=== PATIENT | female | born 1990 | race African-American/Black ===

== ENCOUNTER 2017-08-21 16:54 | Inpatient (IN) | payer OTHER ==
[2017-08-22] MEDS ORDERED: DEXTROSE 5%-LACTATED RINGERS 1,000 ML IV SCH ×3 (05:00→19:45)
[2017-08-22 05:58] LABS: BASO % 0.1 % (0-2.0); EOS % 0.1 % (0-4.5); HEMATOCRIT 32.8 % (32.4-45.2); HEMOGLOBIN 10.4 GM/dL (10.7-15.3); LYMPH % 14.3 % (8-40); MCH 24.7 pg (25.7-33.7); MCHC 31.6 g/dl (32.0-36.0); MEAN CELL VOLUME 78.1 fl (80-96); MONO % 4.4 % (3.8-10.2); NEUT % 81.1 % (42.8-82.8); PLATELET COUNT 307 K/MM3 (134-434); RDW 17.7 % (11.6-15.6); WHITE BLOOD COUNT 14.3 K/mm3 (4.0-10.0)
[2017-08-22 06:23] VITALS: BMI 34.9
[2017-08-22 06:31] LABS: ANION GAP 9 (8-16); BLOOD UREA NITROGEN 6 mg/dL (7-18); CALCIUM 8.7 mg/dL (8.5-10.1); CHLORIDE 106 mmol/L (98-107); CO2 22 mmol/L (21-32); CREATININE 0.6 mg/dL (0.55-1.02); GLUCOSE,RANDOM 81 mg/dL (74-106); POTASSIUM 4.1 mmol/L (3.5-5.1); SODIUM 137 mmol/L (136-145)
[2017-08-22 06:41] LABS: INR 1.01 (0.82-1.09); PROTHROMBIN TIME (PATIENT) 11.4 SEC (9.98-11.88)
[2017-08-22 06:43] LABS: ACTIVATED PTT 27.3 SECONDS (26.9-34.4)
[2017-08-22] MEDS ORDERED: BUTORPHANOL TARTRATE 1 MG/ML VIAL IVPB ONE (08:16)
[2017-08-22] MEDS ORDERED: PROMETHAZINE HCL 25 MG/1 ML VIAL IVPUSH ONE (08:16)
--- NOTE | 2017-08-22 08:22 | HP ---
Past Medical History - Admission Chief Complaint: Labor pain History of Present Illness: 26 yo , @ 40 weeks gestation, admitted for labor pain. She denies any vaginal bleeding, but admits to leakage of fluid. Upon admission she was 3 cm dilated History Source: Patient Limitations to Obtaining History: No Limitations - Past Medical History ...: 2 ...Para: 0 ...Term: 0 ...: 0 ...Spon : 0 ...Induced : 1 ...Multiple Gestation: 0 ... Weeks Gestation by Dates: 40.2 ...EDC by Sono: 08/19/17 - Past Surgical History Past Surgical History: Yes: None Hx Myomectomy: No Hx Transabdominal Cerclage: No - Smoking History Smoking history: Never smoked Have you smoked in the past 12 months: No - Alcohol/Substance Use Hx Alcohol Use: No - Social History Usual Living Arrangement: Yes: With Parent History of Recent Travel: No Home Medications - Allergies Allergies/Adverse Reactions: Allergies Allergy/AdvReac Type Severity Reaction Status Date / Time No Known Allergies Allergy Verified 08/21/17 17:39 - Home Medications Home Medications: Ambulatory Orders Vit 108/Iron/Folic AC [ One Tablet] 1 tab PO DAILY 08/21/17 Family Disease History - Family Disease History Family History: Unremarkable Review of Systems - Review of Systems Constitutional: reports: No Symptoms Eyes: reports: No Symptoms HENT: reports: No Symptoms Neck: reports: No Symptoms Cardiovascular: reports: No Symptoms Respiratory: reports: No Symptoms Gastrointestinal: reports: No Symptoms Genitourinary: reports: Pain Breasts: reports: No Symptoms Reported Musculoskeletal: reports: No Symptoms Integumentary: reports: No Symptoms Neurological: reports: No Symptoms Endocrine: reports: No Symptoms Hematology/Lymphatic: reports: No Symptoms Pain Intensity: 7 Physical Exam - Maternity Vital Signs: Vital Signs Temperature 98.1 F 08/22/17 07:00 Pulse Rate 103 H 08/22/17 07:00 Respiratory Rate 18 08/22/17 07:00 Blood Pressure 107/68 08/22/17 07:00 O2 Sat by Pulse Oximetry (%) Constitutional: Yes: Well Nourished Eyes: Yes: Conjunctiva Clear HENT: Yes: Atraumatic Neck: Yes: Supple Cardiovascular: Yes: Regular Rate and Rhythm Lungs: Clear to auscultation - Abdominal Exam/OB Number of Fetuses: Single Presentation: Vertex Intensity: Moderate - Vaginal Exam/OB Dilatation (cm): 3 Effacement (%): 90 Amniotic Membrane Status: Leaking Presentation: Vertex/Position Station: -2 - Physical Exam Musculoskeletal: Yes: WNL ...Motor Strength: WNL Psychiatric: Yes: Alert, Oriented - Labs Lab Results: CBC, BMP 08/22/17 05:30 08/22/17 05:30 Problem List - Problems (1) Pain during labor Code(s): O99.89 - OTH DISEASES AND CONDITIONS COMPL PREG/CHLDBRTH; R52 - PAIN, UNSPECIFIED Assessment/Plan Labor pain Admit to L&D Pitocin augmentation Analgesia as needed Anticipate
[2017-08-22] MEDS ORDERED: OXYTOCIN 15 UNITS/ LR 250 ML 15 UNIT/250 ML INFUS.BAG IVPB SCH ×2 (08:30→19:45)
[2017-08-22] MEDS ORDERED: TUBERCULIN PPD 5 TU/0.1ML SYRINGE (IN PATIENT USE ONLY) ID ONE (09:45)
[2017-08-22] MEDS ORDERED: ELECTROLYTE-148 SOLN 500 ML IV SCH (17:00)
[2017-08-22] MEDS ORDERED: CITRIC ACID/SODIUM CITRATE 30 ML UNIT-DOSE CUP PO ONE (17:00)
[2017-08-22] MEDS ORDERED: ELECTROLYTE-148 SOLN 1,000 ML IV SCH ×2 (17:30→19:45)
[2017-08-22] MEDS ORDERED: IBUPROFEN 600 MG TABLET (FP) PO PRN ×2 (18:14→18:56)
[2017-08-22] MEDS ORDERED: ONDANSETRON 4 MG/2 ML VIAL IVPUSH PRN ×2 (18:14→19:44)
[2017-08-22] MEDS ORDERED: ACETAMINOPHEN 325 MG TABLET (FP) PO PRN (18:14)
[2017-08-22] MEDS ORDERED: oxyCODONE HCL 5 MG TABLET PO PRN (18:56)
[2017-08-22] MEDS ORDERED: METHYLERGONOVINE MALEATE 0.2 MG/1 ML AMP IM PRN ×2 (18:56→19:44)
[2017-08-22] MEDS ORDERED: SIMETHICONE 80 MG TAB.CHEW (FP) PO PRN (18:56)
[2017-08-22] MEDS ORDERED: OXYTOCIN 20 UNITS in 0.9% NS 20 UNIT/1,000 ML INFUS.BAG IV SCH ×2 (19:00→19:03)
--- NOTE | 2017-08-22 19:00 | OP ---
Operative Note - Note: Operative Date: 08/22/17 Pre-Operative Diagnosis: Arrest of descent Operation: Primary Low Transverse Findings: Baby boy in ROT position Post-Operative Diagnosis: Same as Pre-op Surgeon: Saranya Navarro Anglesmith Helper: Jer Bridges Anesthesia: Spinal Specimens Removed: Placenta Estimated Blood Loss (mls): 600 Operative Report Dictated: Yes
[2017-08-22] MEDS ORDERED: FERROUS SO4 325 MG TABLET (FP) PO SCH (19:15)
[2017-08-22] MEDS ORDERED: BISACODYL 10 MG SUPP.RECT RC PRN (19:42)
[2017-08-22] MEDS ORDERED: IBUPROFEN 800 MG/8 ML IJ IVPB ONE ×2 (19:59→20:30)
[2017-08-23] MEDS ORDERED: IBUPROFEN 800 MG/8 ML IJ IVPB PRN (04:22)
[2017-08-23] MEDS: OXYTOCIN 20 UNITS in 0.9% NS 20 UNIT/1,000 ML INFUS.BAG IV SCH ×2 (07:12→09:00)
--- NOTE | 2017-08-23 08:06 | PN ---
Post Progress Note Post Day: 1 Type of Delivery: Primary C/S Vital Signs: Vital Signs Temperature 98.1 F 08/23/17 06:00 Pulse Rate 100 H 08/23/17 06:00 Respiratory Rate 18 08/23/17 06:00 Blood Pressure 112/62 08/23/17 06:00 O2 Sat by Pulse Oximetry (%) 100 08/22/17 20:00 Breast Exam: Yes: Soft Uterus: Yes: Fundus Firm Incision: Yes: Dressing dry and intact Abdomen/GI: Yes: Abdomen soft, Tender Lochia: Yes: Rubra Lochia, amount: Moderate Extremities: Yes: Calves non-tender Perineum: Yes: Intact - Labs Labs: CBC WBC 14.3 K/mm3 (4.0-10.0) H 08/22/17 05:30 RBC 4.20 M/mm3 (3.60-5.2) 08/22/17 05:30 Hgb 10.4 GM/dL (10.7-15.3) L 08/22/17 05:30 Hct 32.8 % (32.4-45.2) 08/22/17 05:30 MCV 78.1 fl (80-96) L 08/22/17 05:30 MCH 24.7 pg (25.7-33.7) L 08/22/17 05:30 MCHC 31.6 g/dl (32.0-36.0) L 08/22/17 05:30 RDW 17.7 % (11.6-15.6) H 08/22/17 05:30 Plt Count 307 K/MM3 (134-434) 08/22/17 05:30 MPV 8.0 fl (7.5-11.1) 08/22/17 05:30 Neutrophils % 81.1 % (42.8-82.8) 08/22/17 05:30 Lymphocytes % 14.3 % (8-40) 08/22/17 05:30 Monocytes % 4.4 % (3.8-10.2) 08/22/17 05:30 Eosinophils % 0.1 % (0-4.5) 08/22/17 05:30 Basophils % 0.1 % (0-2.0) 08/22/17 05:30 Assessment/Plan s/p section day#1 condition is stable h/h are pending continue clear liquid diet encourage ambulation
[2017-08-23] MEDS: FERROUS SO4 325 MG TABLET (FP) PO SCH ×2 (08:53→17:28)
[2017-08-23 08:57] LABS: BASO % 0.3 % (0-2.0); HEMATOCRIT 26.9 % (32.4-45.2); HEMOGLOBIN 8.4 GM/dL (10.7-15.3); LYMPH % 13.6 % (8-40); MCH 24.5 pg (25.7-33.7); MCHC 31.1 g/dl (32.0-36.0); MEAN CELL VOLUME 78.7 fl (80-96); MEAN PLT VOLUME 7.8 fl (7.5-11.1); NEUT % 80.1 % (42.8-82.8); PLATELET COUNT 223 K/MM3 (134-434); RBC 3.42 M/mm3 (3.60-5.2); RDW 17.7 % (11.6-15.6); WHITE BLOOD COUNT 15.2 K/mm3 (4.0-10.0)
[2017-08-23] MEDS ORDERED: PRENATAL VITAMINS W/ FOLIC ACID TABLET (FP) PO SCH (10:00)
[2017-08-23] MEDS: PRENATAL VITAMINS W/ FOLIC ACID TABLET (FP) PO SCH (10:00)
[2017-08-23] MEDS: IBUPROFEN 600 MG TABLET (FP) PO PRN ×2 (11:39→22:18)
[2017-08-23] MEDS: ACETAMINOPHEN 325 MG TABLET (FP) PO PRN ×3 (11:40→22:18)
[2017-08-23] MEDS: SIMETHICONE 80 MG TAB.CHEW (FP) PO PRN ×3 (11:41→22:17)
--- NOTE | 2017-08-23 13:28 | OP ---
DATE OF OPERATION: 08/22/2017 PREOPERATIVE DIAGNOSIS: Intrauterine at 40 weeks with arrest of descent. POSTOPERATIVE DIAGNOSIS: Intrauterine at 40 weeks with arrest of descent. PROCEDURE: Primary low transverse section. SURGEON: Saranya Navarro MD GEAR SETTER: GENTRY Guerra ANESTHESIA: Spinal. COMPLICATION: None. ESTIMATED BLOOD LOSS: 600 mL. PROCEDURE: Patient was taken to the operating room where spinal anesthesia was administered. Patient was then prepped and draped in proper sterile fashion. A Pfannenstiel skin incision was made and carried down to the underlying layer of fascia. The fascia was incised in the midline and extended laterally. The superior aspect of the fascial incision was then grasped with a Linda clamp, elevated and the rectus muscle dissected out bluntly. Attention was then turned to the inferior aspect of the fascial incision which in a similar fashion was then grasped with a Linda clamp, elevated and the rectus muscle dissected out bluntly. The rectus muscle was then in the midline, the peritoneum identified and entered sharply with the Metzenbaum scissors. The peritoneal incision was then entered sharply with the Metzenbaum scissors. This incision was extended superiorly and inferiorly with good visualization of the bladder and then the vesicouterine peritoneum was then grasped with a pickup and entered sharply with the Metzenbaum scissors. This incision was extended laterally and a bladder flap was created digitally. The bladder blade was inserted and the lower uterine segment was incised with a 10 blade. This incision was extended laterally and the head delivered atraumatically. Nose and mouth were suctioned and the cord clamped and cut. The infant was handed to the waiting credit review analyst. Then, the placenta was removed manually. The uterus exteriorized and cleared of all clots and debris. The uterine incision was repaired using 0 Biosyn in a running locked fashion. The 2nd layer of the same suture was used as a means to provide excellent hemostasis. Then, the peritoneum was closed using 2-0 Biosyn. The fascia was reapproximated using 0 Vicryl in a running fashion and the skin was closed in a subcuticular fashion using 3-0 Vicryl. Patient tolerated procedure well. Patient was then taken to PACU in stable condition. PATHOLOGY: Placenta. Breonna STRANGE/[id number]
[2017-08-23] MEDS: oxyCODONE HCL 5 MG TABLET PO PRN ×2 (17:50→22:17)
[2017-08-23] MEDS ORDERED: BISACODYL 10 MG SUPP.RECT RC PRN (18:56)
--- NOTE | 2017-08-23 20:20 | PN ---
Progress Note, Physician Chief Complaint: Pt. ambulating and voiding, pain controlled, no anesthetic complaints. - Current Medication List Current Medications: Active Medications Acetaminophen (Tylenol -) 650 mg PO Q4H PRN PRN Reason: FEVER OR PAIN Last Admin: 08/23/17 17:51 Dose: 650 mg Bisacodyl (Dulcolax Suppository -) 10 mg RC PRN PRN PRN Reason: CONSTIPATION Diphenhydramine HCl (Benadryl Injection -) 25 mg IVPUSH Q4H PRN PRN Reason: Pruritis Ferrous Sulfate (Feosol -) 325 mg PO BID@0800,1730 [facility] Last Admin: 08/23/17 17:28 Dose: Not Given Dextrose/Lactated Ringer's (D5-Lr -) 1,000 mls @ 125 mls/hr IV ASDIR [facility] Parenteral Electrolytes (Plasma-Lyte 148 -) 1,000 mls @ 125 mls/hr IV ASDIR [facility] Oxytocin/Lactated Ringer's (Lactated Ringer+ 15 Units Pitocin) 15 unit in 250 mls @ 1 mls/hr IVPB ASDIR [facility]; 0.06 UNIT/HR PRN Reason: Protocol Last Admin: 08/23/17 07:11 Dose: Not Given Oxytocin/Sodium Chloride (Normal Saline+20 Units Oxytocin -) 20 unit in 1,000 mls @ 125 mls/hr IV ASDIR [facility] Last Admin: 08/23/17 09:00 Dose: 125 mls/hr Ibuprofen (Motrin -) 600 mg PO Q4H PRN PRN Reason: PAIN Last Admin: 08/23/17 11:39 Dose: 600 mg Ibuprofen (Caldolor Injection -) 800 mg IVPB Q6H PRN PRN Reason: FEVER Last Admin: 08/23/17 04:42 Dose: 800 mg Methylergonovine Maleate (Methergine Injection -) 0.2 mg IM Q4H PRN PRN Reason: Excessive Bleeding (L&D) Ondansetron HCl (Zofran Injection) 4 mg IVPUSH Q4H PRN PRN Reason: NAUSEA Oxycodone HCl (Roxicodone -) 5 mg PO Q4H PRN PRN Reason: PAIN LEVEL 1-5 Last Admin: 08/23/17 17:50 Dose: 5 mg Multivit/Folic Acid/Iron ( Vitamins (Sjr) -) 1 tab PO DAILY [facility] Last Admin: 08/23/17 10:00 Dose: Not Given Simethicone (Mylicon -) 80 mg PO Q4H PRN PRN Reason: GAS Last Admin: 08/23/17 17:52 Dose: 80 mg - Objective Vital Signs: Vital Signs Temperature 97.8 F 08/23/17 18:00 Pulse Rate 105 H 08/23/17 18:00 Respiratory Rate 20 08/23/17 18:00 Blood Pressure 117/71 08/23/17 18:00 O2 Sat by Pulse Oximetry (%) 100 08/22/17 20:00 Constitutional: Yes: Well Nourished, No Distress, Calm Musculoskeletal: Yes: WNL Neurological: Yes: WNL, Alert, Oriented ...Motor Strength: WNL Labs: CBC, BMP 08/23/17 08:00 08/22/17 05:30 INR, PTT INR 1.01 (0.82-1.09) 08/22/17 05:30 Assessment/Plan POD#1 s/p under spinal with duramorph. Doing well. D/C from anesthesia care.
--- NOTE | 2017-08-24 06:23 | PN ---
Post Progress Note - Subjective Subjective: Pt seen/examined and doing well. Pain controlled with medication. Ambulating, voiding, tolerating diet. Lochia moderte but decreasing. Denies CP/SOB/F/C/ [place]. No other complaints. Type of Delivery: Primary C/S Vital Signs: Vital Signs Temperature 97.8 F 08/23/17 22:00 Pulse Rate 90 08/23/17 22:00 Respiratory Rate 18 08/23/17 22:00 Blood Pressure 105/69 08/23/17 22:00 O2 Sat by Pulse Oximetry (%) 100 08/22/17 20:00 Uterus: Yes: Fundus Firm Incision: Yes: Sutures intact Abdomen/GI: Yes: Abdomen soft, Tolerating PO. No: Tender Lochia, amount: Small Extremities: Yes: Calves non-tender. No: Calf tenderness Perineum: Yes: Intact Activity: Ambulating - Labs Labs: CBC WBC 15.2 K/mm3 (4.0-10.0) H 08/23/17 08:00 RBC 3.42 M/mm3 (3.60-5.2) L 08/23/17 08:00 Hgb 8.4 GM/dL (10.7-15.3) L D 08/23/17 08:00 Hct 26.9 % (32.4-45.2) L D 08/23/17 08:00 MCV 78.7 fl (80-96) L 08/23/17 08:00 MCH 24.5 pg (25.7-33.7) L 08/23/17 08:00 MCHC 31.1 g/dl (32.0-36.0) L 08/23/17 08:00 RDW 17.7 % (11.6-15.6) H 08/23/17 08:00 Plt Count 223 K/MM3 (134-434) D 08/23/17 08:00 MPV 7.8 fl (7.5-11.1) 08/23/17 08:00 Neutrophils % 80.1 % (42.8-82.8) 08/23/17 08:00 Lymphocytes % 13.6 % (8-40) 08/23/17 08:00 Monocytes % 6.0 % (3.8-10.2) 08/23/17 08:00 Eosinophils % 0.0 % (0-4.5) D 08/23/17 08:00 Basophils % 0.3 % (0-2.0) 08/23/17 08:00 Problem List - Problems (1) Status post primary low transverse section Code(s): Z98.891 - HISTORY OF UTERINE SCAR FROM PREVIOUS SURGERY Assessment/Plan 26 y/o POD#2 s/p primary delivery -AFVSS -Hgb /Hct 8.4/26.9 post op - pt asymptomatic, stable, will recheck on POD#3 -regular diet -encourage ambulation -add stool softener today -routine post op care
[2017-08-24] MEDS: IBUPROFEN 600 MG TABLET (FP) PO PRN ×3 (08:19→21:57)
[2017-08-24] MEDS: oxyCODONE HCL 5 MG TABLET PO PRN ×3 (08:19→21:57)
[2017-08-24] MEDS: ACETAMINOPHEN 325 MG TABLET (FP) PO PRN ×3 (08:19→21:58)
[2017-08-24] MEDS: SIMETHICONE 80 MG TAB.CHEW (FP) PO PRN ×2 (08:20→15:26)
[2017-08-24] MEDS: FERROUS SO4 325 MG TABLET (FP) PO SCH ×2 (08:20→17:03)
[2017-08-24] MEDS: PRENATAL VITAMINS W/ FOLIC ACID TABLET (FP) PO SCH (09:12)
[2017-08-24] MEDS: SENNOSIDES/DOCUSATE COMBO (SENNA PLUS) TABLET (UD) PO PRN (21:56)
--- NOTE | 2017-08-25 08:01 | PN ---
Post Progress Note Post Day: 3 Type of Delivery: Primary C/S Vital Signs: Vital Signs Temperature 97.8 F 08/24/17 21:16 Pulse Rate 100 H 08/24/17 21:16 Respiratory Rate 20 08/24/17 21:16 Blood Pressure 135/82 08/24/17 21:16 O2 Sat by Pulse Oximetry (%) 100 08/22/17 20:00 Breast Exam: Yes: Soft Uterus: Yes: Fundus Firm, Fundus below umbilicus Incision: Yes: Sutures intact Abdomen/GI: Yes: Abdomen soft Lochia: Yes: Serosa Lochia, amount: Moderate Extremities: Yes: Calves non-tender Perineum: Yes: Intact Activity: Ambulating - Labs Labs: CBC WBC 15.2 K/mm3 (4.0-10.0) H 08/23/17 08:00 RBC 3.42 M/mm3 (3.60-5.2) L 08/23/17 08:00 Hgb 8.4 GM/dL (10.7-15.3) L D 08/23/17 08:00 Hct 26.9 % (32.4-45.2) L D 08/23/17 08:00 MCV 78.7 fl (80-96) L 08/23/17 08:00 MCH 24.5 pg (25.7-33.7) L 08/23/17 08:00 MCHC 31.1 g/dl (32.0-36.0) L 08/23/17 08:00 RDW 17.7 % (11.6-15.6) H 08/23/17 08:00 Plt Count 223 K/MM3 (134-434) D 08/23/17 08:00 MPV 7.8 fl (7.5-11.1) 08/23/17 08:00 Neutrophils % 80.1 % (42.8-82.8) 08/23/17 08:00 Lymphocytes % 13.6 % (8-40) 08/23/17 08:00 Monocytes % 6.0 % (3.8-10.2) 08/23/17 08:00 Eosinophils % 0.0 % (0-4.5) D 08/23/17 08:00 Basophils % 0.3 % (0-2.0) 08/23/17 08:00 Assessment/Plan s/p section da3 recpvering well continue current care
[2017-08-25] MEDS: oxyCODONE HCL 5 MG TABLET PO PRN ×2 (08:46→15:56)
[2017-08-25] MEDS: FERROUS SO4 325 MG TABLET (FP) PO SCH ×2 (08:46→17:20)
[2017-08-25] MEDS: SIMETHICONE 80 MG TAB.CHEW (FP) PO PRN ×3 (08:46→21:52)
[2017-08-25] MEDS: IBUPROFEN 600 MG TABLET (FP) PO PRN ×3 (08:46→21:52)
[2017-08-25] MEDS: ACETAMINOPHEN 325 MG TABLET (FP) PO PRN ×3 (08:46→21:52)
[2017-08-25] MEDS: PRENATAL VITAMINS W/ FOLIC ACID TABLET (FP) PO SCH ×2 (08:47→09:45)
[2017-08-25 12:22] LABS: BASO % 0.3 % (0-2.0); HEMATOCRIT 27.8 % (32.4-45.2); HEMOGLOBIN 8.4 GM/dL (10.7-15.3); LYMPH % 19.2 % (8-40); MCH 24.1 pg (25.7-33.7); MCHC 30.3 g/dl (32.0-36.0); MEAN CELL VOLUME 79.6 fl (80-96); MEAN PLT VOLUME 7.8 fl (7.5-11.1); NEUT % 75.5 % (42.8-82.8); PLATELET COUNT 326 K/MM3 (134-434); RBC 3.49 M/mm3 (3.60-5.2); RDW 18.2 % (11.6-15.6); WHITE BLOOD COUNT 11.5 K/mm3 (4.0-10.0)
[2017-08-25] MEDS: SENNOSIDES/DOCUSATE COMBO (SENNA PLUS) TABLET (UD) PO PRN (21:52)
--- NOTE | 2017-08-26 08:42 | DS ---
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 Vital Signs: Vital Signs Temperature 97.4 F L 08/25/17 21:11 Pulse Rate 101 H 08/25/17 21:11 Respiratory Rate 20 08/25/17 21:11 Blood Pressure 128/75 08/25/17 21:11 O2 Sat by Pulse Oximetry (%) 100 08/22/17 20:00 Constitutional: Yes: Well Nourished, No Distress, Calm Eyes: Yes: WNL, Conjunctiva Clear HENT: Yes: WNL, Atraumatic, Normocephalic Neck: Yes: WNL, Supple, Trachea Midline Cardiovascular: Yes: WNL, Regular Rate and Rhythm Respiratory: Yes: WNL, Regular Gastrointestinal: Yes: WNL, Normal Bowel Sounds ...Rectal Exam: Yes: Deferred Renal/: Yes: WNL Pelvis: Yes: WNL External Genitalia: Yes: Normal Internal Exam Deferred: Yes Vaginal Exam: Yes: Normal Uterus: Yes: Normal, Firm Adnexa: Normal: Bilateral ....Post : Yes: Uterus firm, Uterus non-tender, Moderate lochia rubra Breast(s): Yes: WNL Musculoskeletal: Yes: WNL Extremities: Yes: WNL Edema: Yes Edema: LUE: Trace, RUE: Trace Integumentary: Yes: WNL Wound/Incision: Yes: Clean/Dry, Well Approximated Neurological: Yes: WNL, Alert, Oriented ...Motor Strength: WNL Psychiatric: Yes: WNL, Alert, Oriented Labs: CBC, BMP 08/25/17 09:31 08/22/17 05:30 Delivery - Delivery Type of Anesthesia: Spinal EBL (cc): 600 Delivery, Single - Stages of Labor Date 1st Stage Initiatied: 08/22/17 Time 1st Stage Initiated: 03:00 Date of Delivery: 08/22/17 Time of Delivery: 18:18 Time Placenta Delivered: 18:16 - Condition of Infant Equal Opportunity Assistant/Him Clerk Present: Yes Name: Parrish Delgadillo Gender: Male Weight: 7 lb Position: Right, OT Total Hours ROM (Hrs/Mins): 19 hours 16 minutes - 1 Minute Total Score: 9 5 Minutes Total Score: 9 - [place] Feeding Plan Initial Plan: Elected not to breastfeed exclusively throughout hospitalization Discharge Summary Reason For Visit: INDUCTION-ADMIT Current Active Problems Pain during labor (Acute) Status post primary low transverse section (Acute) Procedures: Principal: primary section Hospital Course: unremarkable Condition: Stable - Instructions Diet, Activity, Other Instructions: Discharge home. Keep appointment for tomorrow morning. Walk around and rest as needed. Some alleviating factors with early labor is warm/hot showers/baths, warm packs to lower back, hydrating yourself with water. Return to the hospital if your water breaks, you have heavy vaginal bleeding, the baby is not moving or contractions that increase in intensity. Referrals: Saranya Navarro MD [Staff Physician] - - Home Medications Comprehensive Discharge Medication List: Ambulatory Orders Vit 108/Iron/Folic AC [ One Tablet] 1 tab PO DAILY 08/21/17 motrin 600mg po q4 prn pain.
[2017-08-26] MEDS: FERROUS SO4 325 MG TABLET (FP) PO SCH (09:42)
[2017-08-26] MEDS: PRENATAL VITAMINS W/ FOLIC ACID TABLET (FP) PO SCH (09:42)
[2017-08-26] MEDS: SIMETHICONE 80 MG TAB.CHEW (FP) PO PRN (10:14)
[2017-08-26] MEDS: IBUPROFEN 600 MG TABLET (FP) PO PRN (10:14)
[2017-08-26] MEDS: ACETAMINOPHEN 325 MG TABLET (FP) PO PRN (10:14)
[2017-08-26 10:44] VITALS: BP 122/76; PULSE 98; TEMP 97.5
--- NOTE | 2017-08-27 14:01 | PATH ---
Surgical Pathology Report Patient Name: JESUS LAI Med. Rec. 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 Specimen(s) Received PLACENTA Clinical History , 40.3 weeks Failure to progress, nonreassuring heart rate Final Diagnosis PLACENTA, DELIVERY: FOCALLY DISRUPTED THIRD TRIMESTER PLACENTA WITH INFARCT WITH ASSOCIATED CALCIFICATION, THREE VESSEL UMBILICAL CORD AND UNREMARKABLE PLACENTAL MEMBRANES. Electronically Signed Ollie Espinoza M.D. Gross Description The specimen is received fresh labeled placenta and is a 422 gram, 23.0 x 15.5 x 1.5 cm. placenta with attached membranes and umbilical cord. The attached membranes are bell, translucent with focal opacities and insert marginally. The umbilical cord measures 64 cm. in length and averages 1.1 cm. in diameter. The cord inserts eccentrically, 3 cm. to the nearest margin. No true knots or strictures are identified. Cut surface of the umbilical cord reveals 3 vessels. The surface is martines-blue with minimal fibrin deposition and appropriate caliber vessels. The maternal surface is red-brown with focal defects. Sectioning reveals a 3.5 x 2.2 x 0.9 cm bell, firm intraparenchymal lesion. The remaining placental parenchyma is red-brown and spongy. Adjuster Piano Action sections are submitted in four cassettes as follows: 1- membrane rolls and umbilical cord; 2-lesion; 3-4- full thickness sections of placenta. 08/23/201708/23/2017
== END 2017-08-26 14:47 | disposition home or self-care (01) | DRG 540 ==
LOC: JDEL 16:54 → JLDR 08-22 04:40 → J3W 08-22 20:55
PROVIDERS: ADMIT Obstetrics & Gynecology; ATTEND Obstetrics & Gynecology
PROC: 10D00Z1 Extraction of Products of Conception, Low, Open Approach (ICD-10-PCS; principal; 2017-08-22)
DX: O32.4XX0 Maternal care for high head at term, not applicable or unspecified (principal); O48.0 Post-term pregnancy; Z3A.40 40 weeks gestation of pregnancy; Z37.0 Single live birth
CPT/HCPCS: 36415; 59025; 71020-TC; 80048; 85025; 85610; 85730; 86593; 86762; 86850; 86900; 86901; 87389; 88307-TC